=== PATIENT | male | born 1985 | race Caucasian/White ===

== ENCOUNTER 2021-05-18 17:22 | Emergency (ER) | payer MEDICAID ==
[~2021-05-18] VITALS: Ht 182.9 cm; Wt 83.0 kg
[2021-05-18 17:35] VITALS: BP_SYST 136
[2021-05-18] MEDS ORDERED: valACYclovir HCL 500 MG TABLET PO ONE (18:00)
[2021-05-18] MEDS ORDERED: IBUPROFEN 800 MG TABLET PO ONE (18:00)
[2021-05-18 18:10] VITALS: BP_SYST 136
== END 2021-05-18 18:10 ==
LOC: SED 17:22
DX: B02.9 Zoster without complications (principal)
CPT/HCPCS: 99283